=== PATIENT | female | born 1990 | race Caucasian/White ===

== ENCOUNTER → 2016-08-17 | Outpatient (CLI) | payer BC ==
--- NOTE | 2016-08-17 18:10 | XR ---
EXAMINATION TYPE: XR chest 2V DATE OF EXAM: 08/17/2016 6:02 PM COMPARISON: 07/28/1991 HISTORY: Left-sided chest pain TECHNIQUE: Frontal and lateral views of the chest are obtained. FINDINGS: Heart and mediastinum are normal. Lungs are clear. Diaphragm is normal. Bony thorax is int act. IMPRESSION: Normal chest.
== END | disposition home or self-care (01) ==
LOC: RADXRMAIN 17:40
PROVIDERS: ATTEND Family Medicine
DX: R07.89 Other chest pain (principal)
CPT/HCPCS: 71020

== ENCOUNTER → 2019-03-11 | Outpatient (CLI) | payer BC ==
--- NOTE | 2019-03-12 07:52 | CT ---
EXAMINATION TYPE: CT sinus wo con DATE OF EXAM: 03/11/2019 COMPARISON: None HISTORY: chronic sinus congestion, J 32.9 CT DLP: 391.8 mGycm CONTRAST: 0 mL of Isovue 300 The paranasal sinuses are examined in the axial plane at 2 mm thick sections. Reconstructed images i n the coronal plane were obtained. There is dental amalgam scatter artifact The maxillary sinuses are clear. The ethmoid air cells are clear. The sphenoid sinuses are clear. The frontal sinuses are clear. The septum is evaluated. There is septal deviation to the left. The ostiomeatal units are patent. IMPRESSIONS: 1. Unremarkable paranasal sinus study.
--- NOTE | 2019-03-12 08:20 | CT ---
EXAMINATION TYPE: CT soft tissue neck w con DATE OF EXAM: 03/11/2019 COMPARISON: None HISTORY: swelling to left side of neck CT DLP: 311.2 mGycm CONTRAST: Patient injected with 100 mL of Isovue 300. TECHNIQUE: Axial images at 3 mm thick sections. Reconstructed images in the coronal plane and sagitt al plane are reviewed. FINDINGS: Limited CT sections are obtained the lung apices. The lung apices appear clear. CT neck: The torus tubarius and fossa of Rosenmuller are normal. [employer] spaces are normal. Para nasal sinuses and mastoid air cells are clear. Parotid glands appear normal and symmetrical. Submandibular glands, are normal. Parapharyngeal spac es are normal. There are small scattered bilateral lymph nodes present bilaterally. Suspicious enlarg ed lymphadenopathy is not identified. The hypopharynx appears within normal limits. Vocal cord level appear symmetrical. Thyroid as visualized is normal. Osseous structures are normal. IMPRESSIONS: 1. Unremarkable CT soft tissue neck.
== END | disposition home or self-care (01) ==
LOC: RADCTMAIN 16:15
PROVIDERS: ATTEND Otolaryngology
DX: J32.9 Chronic sinusitis, unspecified (principal); M26.69 Other specified disorders of temporomandibular joint; R22.1 Localized swelling, mass and lump, neck
CPT/HCPCS: 70491; 70486; Q9967

== ENCOUNTER → 2020-12-06 | Outpatient (CLI) | payer BC ==
--- NOTE | 2020-12-06 15:43 | US ---
EXAMINATION TYPE: US pelvic complete DATE OF EXAM: 12/06/2020 COMPARISON: NONE CLINICAL HISTORY: R10.31 RLQ PAIN. TECHNIQUE: . Transabdominal sonographic images of the pelvis were acquired. Date of LMP: Irregular cycles due to control EXAM MEASUREMENTS: Uterus: 8.0 x 3.1 x 4.1 cm Endometrial Stripe: 0.6 cm Right Ovary: 3.0 x 1.9 x 2.1 cm Left Ovary: 2.8 x 1.8 x 1.9 cm 1. Uterus: Anteverted wnl 2. Endometrium: wnl 3. Right Ovary: wnl follicles 4. Left Ovary: wnl follicles 5. Bilateral Adnexa: wnl 6. Posterior cul-de-sac: wnl RLQ scanned at area of pain; no sonographic abnormality visualized IMPRESSION: 1. Unremarkable sonographic study of the pelvis. No free fluid. Endometrial stripe is not thickened p remenstrual female. Bilateral ovarian follicles. 2. The right lower quadrant was sonographically evaluated at the site of pain. No sonographic abnorma lity was seen. No fluid collection.
== END | disposition home or self-care (01) ==
LOC: RADUSWWP 13:03
PROVIDERS: ATTEND Family Medicine
DX: N92.6 Irregular menstruation, unspecified (principal)
CPT/HCPCS: 76856

== ENCOUNTER → 2023-10-19 | Outpatient (CLI) | payer BC ==
[2023-10-19 22:56] LABS: Insulin Level 16.8 mIU/mL (3.0-25.0)
[2023-10-19 23:19] LABS: Basophils # (A) 0.03 X 10*3/uL (0.00-0.10); Basophils % (A) 0.4 %; Eosinophils # (A) 0.08 X 10*3/uL (0.04-0.35); HCT 43.7 % (37.2-46.3); Lymphocytes # (A) 3.21 X 10*3/uL (0.90-5.00); Lymphocytes % (A) 38.4 %; MCH 30.2 pg (27.0-32.0); MCHC 34.3 g/dL (32.0-37.0); MCV 87.9 FL (80.0-97.0); Mean Platelet Volume 10.8 FL (9.5-12.2); Monocytes # (A) 0.51 X 10*3/uL (0.20-1.00); Monocytes % (A) 6.1 %; NRBC Per 100 WBC 0 X 10*3/uL (0.00-0.01); Neutrophils # (A) 4.51 X 10*3/uL (1.80-7.70); Neutrophils % (A) 53.9 %; Platelet Count 368 X 10*3/uL (140-440); RBC 4.97 X 10*6/uL (4.10-5.20); RDW 11.9 % (11.5-14.5); WBC 8.36 X 10*3/uL (4.50-10.00)
[2023-10-19 23:25] LABS: Progesterone 0.3 ng/mL
[2023-10-19 23:42] LABS: ALT 14 U/L (8-44); AST 16 U/L (13-35); Albumin 4.6 g/dL (3.8-4.9); Albumin/Globulin Ratio 1.59 Ratio (1.60-3.17); Alkaline Phosphatase 86 U/L (41-126); BUN/Creat Ratio 10.56 Ratio (12.00-20.00); Blood Urea Nitrogen 9.5 mg/dL (9.0-27.0); Calcium 9.5 mg/dL (8.7-10.3); Chloride 102 mmol/L (96-109); Chol/HDL Ratio 3.07 Ratio; Estradiol 46.9 pg/mL; Globulin 2.9 g/dL (1.6-3.3); Glucose 91 mg/dL (70-110); LDL Cholesterol,Calculated 99.3 mg/dL (0.0-131.0); Potassium 4.1 mmol/L (3.5-5.5); Sodium 140 mmol/L (135-145); T4, Free (Free Thyroxine) 1.14 ng/dL (0.80-1.80); Total Bilirubin 0.3 mg/dL (0.3-1.2); Total Protein 7.5 g/dL (6.2-8.2); VLDL Calculation 8.56 mg/dL (5.00-40.00)
== END | disposition home or self-care (01) ==
LOC: LABWHC1 11:07
PROVIDERS: ATTEND Family Medicine
DX: Z13.228 Encounter for screening for other metabolic disorders (principal); Z13.220 Encounter for screening for lipoid disorders; Z13.29 Encounter for screening for other suspected endocrine disorder; Z13.21 Encounter for screening for nutritional disorder; N92.6 Irregular menstruation, unspecified; Z97.5 Presence of (intrauterine) contraceptive device; E66.9 Obesity, unspecified; Z71.82 Exercise counseling
CPT/HCPCS: 36415; 80053; 80061; 82306; 82397; 82607; 82627; 82670; 83036; 83525; 84144; 84146; 84403; 84439; 84443; 84480; 85025; 86800

== ENCOUNTER → 2023-11-01 | Outpatient (CLI) | payer OTHER ==
--- NOTE | 2023-11-01 12:24 | XR ---
EXAMINATION TYPE: XR Hip 2 views RT and AP Pelvis, XR knee complete 3 views RT DATE OF EXAM: 11/01/2023 COMPARISON: NONE HISTORY: 33-year-old female S70.01XA CONTUSION OF RIGHT HIP, INITIAL S80.01XA FINDINGS: Pelvis and right hip: SI joints appear symmetric and intact as does the pubic symphysis. Bilateral hip joint spaces appear maintained. No acute fracture, subluxation, dislocation. Some spurring noted at the right lesser troc hanter. IUD centered in the pelvis. Right knee: Extensor mechanism is intact. No significant joint effusion. No acute fracture, subluxation, dislocat ion. IMPRESSION: 1. Pelvis and right hip without acute osseous abnormality seen. 2. Right knee: No acute osseous abnormality seen.
== END | disposition home or self-care (01) ==
LOC: RADXRMAIN 11:32
PROVIDERS: ATTEND Emergency Medicine
DX: S70.01XA Contusion of right hip, initial encounter (principal); S80.01XA Contusion of right knee, initial encounter; X58.XXXA Exposure to other specified factors, initial encounter
CPT/HCPCS: 73502

== ENCOUNTER → 2023-11-01 | Outpatient (CLI) | payer BC | END | disposition home or self-care (01) | LOC: LABWHC1 11:11 | PROVIDERS: ATTEND Physician Assistant | DX: S80.01XA Contusion of right knee, initial encounter (principal); S70.01XA Contusion of right hip, initial encounter; N91.2 Amenorrhea, unspecified; X58.XXXA Exposure to other specified factors, initial encounter | CPT/HCPCS: 81025 ==

== ENCOUNTER → 2023-11-06 | Outpatient (CLI) | payer OTHER ==
--- NOTE | 2023-11-06 17:18 | XR ---
EXAMINATION TYPE: XR elbow complete RT DATE OF EXAM: 11/06/2023 4:51 PM CLINICAL INDICATION:Female, 33 years old with history of S50.01XD CONTUSION OF RIGHT ELBOW, SUBSEQUEN T ENC; PHH COMPARISON: None TECHNIQUE: XR elbow complete RT; elbow was examined in AP, lateral, and oblique projections. FINDINGS: No evidence of any acute osseous pathology, joint dislocation, or soft tissue swelling is n oted. No evidence of joint effusion is present. IMPRESSION: No evidence of acute fracture.
== END | disposition home or self-care (01) ==
LOC: RADXRMAIN 16:38
PROVIDERS: ATTEND Emergency Medicine
DX: S50.01XD Contusion of right elbow, subsequent encounter (principal); M25.521 Pain in right elbow; W19.XXXD Unspecified fall, subsequent encounter

== ENCOUNTER → 2025-01-29 | Outpatient (CLI) | payer BC | END | disposition home or self-care (01) | LOC: LABWHC1 14:09 | PROVIDERS: ATTEND Nurse Practitioner Family | DX: Z13.29 Encounter for screening for other suspected endocrine disorder (principal) | CPT/HCPCS: 36415; 84403 ==